=== PATIENT | female | born 2000 | race Caucasian/White ===

== ENCOUNTER 2022-12-25 17:21 | Outpatient (CLI) | payer BC ==
[2022-12-25 18:40] LABS: BHCG - Serum Negative (NEGATIVE); Pregs Control Background? CLEAR/WHITE (CLR/WHITE); Pregs Control Bar Appear? YES (CONTROL BAR)
== END 2022-12-25 17:22 | disposition home or self-care (01) ==
LOC: LABBT 17:21
PROVIDERS: ATTEND Student in an Organized Health Care Education/Training Program
DX: Z01.812 Encounter for preprocedural laboratory examination (principal)
CPT/HCPCS: 84703; 85014

== ENCOUNTER 2022-12-30 10:32 | Day surgery (SDC) | payer BC ==
[2022-12-25 17:47] VITALS: BMI 21.0
[2022-12-30] MEDS ORDERED: CEFAZOLIN 2 GM VIAL ONE (13:04)
[2022-12-30] MEDS ORDERED: fentaNYL 50 mcg/mL 1 mL Vial ONE ×2 (13:04→14:27)
[2022-12-30] MEDS ORDERED: Sodium Chloride 0.9% 100 ML ONE (13:04)
[2022-12-30] MEDS ORDERED: Rocuronium Bromide 10 MG/ML (10ML VIAL) ONE (13:15)
[2022-12-30] MEDS ORDERED: Ondansetron PF 4 MG/2 ML Vial ONE (13:15)
[2022-12-30] MEDS ORDERED: PROPOFOL 200 MG/20 ML VIAL ONE (13:15)
[2022-12-30] MEDS ORDERED: Lidocaine 1% PF 5 ML VIAL ONE (13:15)
[2022-12-30] MEDS ORDERED: Dexamethasone 20 MG/5 ML VIAL ONE (13:15)
[2022-12-30] MEDS ORDERED: HYDROcodone/Acetaminophen 5/325 mg Tablet ONE (16:23)
== END 2022-12-30 16:58 | disposition home or self-care (01) ==
LOC: SDC 10:32
PROVIDERS: ATTEND Student in an Organized Health Care Education/Training Program
PROC: 0CTPXZZ Resection of Tonsils, External Approach (ICD-10-PCS; principal; 2022-12-30)
DX: J03.91 Acute recurrent tonsillitis, unspecified (principal); J35.01 Chronic tonsillitis
CPT/HCPCS: 88304; J1100; J2405; J2704; J3010; J3490